=== PATIENT | male | born 2005 | race Caucasian/White ===

== ENCOUNTER 2025-04-04 16:00 | Emergency (ER) | payer SELFPAY ==
[~2025-04-04] VITALS: Ht 188 cm; Wt 77.3 kg
[2025-04-04 16:13] VITALS: BP 143/83; PULSE 104; RESP 18; TEMP 98.3; O2SAT 100
[2025-04-04 16:57] LABS: PLATELET COUNT (AUTO) 195 K/uL (150-450); RED BLOOD CELL COUNT(AUTO) 4.29 MIL/uL (4.50-5.90); RED CELL DISTRIBUTION WIDTH 12.9 % (11.5-14.5); WHITE BLOOD COUNT (AUTO) 8.6 K/uL (4.5-11.0)
[2025-04-04 17:04] LABS: CALCIUM, TOTAL 8.3 mg/dL (8.8-10.5); CREATININE 0.63 mg/dL (0.60-1.30); GLOMERULAR FILTR. RATE CALC > 60 mL/min (>60); GLUCOSE,RANDOM 115 mg/dL (70-110); SODIUM SERUM 142 mmol/L (136-145); UREA NITROGEN, BLOOD 12 mg/dL (7-18)
== END 2025-04-04 18:35 | disposition left against medical advice (07) ==
LOC: EMS 16:30
DX: Z00.8 Encounter for other general examination (principal); Z53.21 Procedure and treatment not carried out due to patient leaving prior to being seen by health care provider
CPT/HCPCS: 36415; 80048; 85025; G0480